=== PATIENT | male | born 1935 | race Caucasian/White ===

== ENCOUNTER 2020-11-14 09:53 | Day surgery (SDC) | payer MEDICARE, OTHER ==
[2020-11-09 13:06] LABS: BASOPHILS # (AUTO) 0.1 X10'3 (0-0.2); BASOPHILS % (AUTO) 1.1 % (0-1); EOSINOPHILS # (AUTO) 0.2 X10'3 (0-0.9); EOSINOPHILS % (AUTO) 2.5 % (0-6); HEMATOCRIT 45.7 % (42.0-52.0); HEMOGLOBIN 15.3 g/dl (14.0-17.9); LYMPHOCYTES # (AUTO) 1.6 X10'3 (1.1-4.8); LYMPHOCYTES % (AUTO) 21.6 % (21-51); MEAN CORPUSCULAR HEMOGLOBIN 32.7 PG (27.0-31.0); MEAN CORPUSCULAR HGB CONC 33.6 g/dL (33.0-36.5); MEAN CORPUSCULAR VOLUME 97.6 FL (78-98); MEAN PLATELET VOLUME 8.2 FL (7.4-10.4); MONOCYTES # (AUTO) 0.9 X10'3 (0-0.9); MONOCYTES % (AUTO) 12.5 % (2-12); NEUTROPHILS # (AUTO) 4.7 X10'3 (1.8-7.7); NEUTROPHILS % (AUTO) 62.3 % (42-75); PLATELET COUNT 228 X10'3 (140-440); RED BLOOD COUNT 4.68 X10'6 (4.70-6.10); RED CELL DISTRIBUTION WIDTH 13.9 % (11.5-14.5); WHITE BLOOD COUNT 7.5 X10'3 (4.5-11.0)
[2020-11-09 13:19] LABS: PARTIAL THROMBOPLASTIN TIME 27 SECONDS (22-32)
[2020-11-09 13:23] LABS: ALANINE AMINOTRANSFERASE 27 U/L (12-78); ALBUMIN 3.3 G/DL (3.4-5.0); ALBUMIN/GLOBULIN RATIO 0.9 (1.1-1.5); ALKALINE PHOSPHATASE 119 IU/L (46-116); ANION GAP 9 (8-16); ASPARTATE AMINO TRANSFERASE 19 U/L (10-37); BILIRUBIN,TOTAL 0.4 MG/DL (0.1-1.0); BLOOD UREA NITROGEN 26 MG/DL (7-18); BUN/CREATININE RATIO 25.2 (5.4-32.0); CALCIUM 8.8 MG/DL (8.5-10.1); CHLORIDE 106 MMOL/L (99-107); CREATININE 1.03 MG/DL (0.60-1.10); GLUCOSE 197 MG/DL (70-104); POTASSIUM 4.6 MMOL/L (3.5-5.1); SODIUM 142 MMOL/L (135-145); TOTAL CARBON DIOXIDE 26.7 MMOL/L (24-32); TOTAL PROTEIN 7.1 G/DL (6.4-8.2); eGFR 69 ML/MIN
[2020-11-09 13:54] LABS: TOTAL CELLS COUNTED 100
[2020-11-09 13:55] LABS: PLATELET ESTIMATE NORMAL
[2020-11-14] VITALS (11 sets, daily range): BP systolic 116–174; BP diastolic 51–77
[~2020-11-14] VITALS: Ht 180.3 cm; Wt 103.9 kg
[~2020-11-14 09:53] MED LIST: ALLO300T2 PO; ASPI-1264 PO; B CO1TAB7 PO; MULT-1085 PO; NPH,100V SQ; SELE200T25 PO; SIMV-45 PO; UBID1CAP54 PO; VALS160T2 PO
[2020-11-14] MEDS ORDERED: dextrose ORAL solution 15 GM/59 ML bottle PO PRN ×2 (10:15)
[2020-11-14] MEDS ORDERED: glucagon, human recombinant 1mg kit SUBCUT PRN (10:15)
[2020-11-14] MEDS ORDERED: LORazepam 0.5 MG tablet PO PRN (10:15)
[2020-11-14] MEDS ORDERED: dextrose 50%-water 50ml dispensing syringe IV PRN ×2 (10:15)
[2020-11-14] MEDS ORDERED: MESSAGE TO PHARMACY PO ONE (10:15)
[2020-11-14] MEDS ORDERED: normal saline 1,000 ML IV SCH (10:15)
[2020-11-14] MEDS ORDERED: insulin Lispro (HumaLOG) vial - multi-dose SQ SCH (10:15)
[2020-11-14] MEDS ORDERED: nitroGLYCERIN 0.4mg SUBLingual tab SL PRN ×2 (10:15→13:30)
[2020-11-14] MEDS ORDERED: diphenhydrAMINE 25mg capsule PO PRN (10:15)
[2020-11-14] MEDS ORDERED: PROBIOTIC (10:31)
[2020-11-14] MEDS ORDERED: TURMERIC (10:31)
[2020-11-14] MEDS ORDERED: VITAMIN D3 PO (10:31)
[2020-11-14] MEDS ORDERED: NITR0.4T51 SL (10:31)
[2020-11-14] MEDS ORDERED: ZINC50TA67 PO (10:31)
[2020-11-14] MEDS ORDERED: TESTOSTERONE TOP (10:31)
[2020-11-14] MEDS ORDERED: VITAMIN K2 (10:31)
[2020-11-14 11:02] LABS: TROPONIN I < 0.04 NG/ML (0.0-0.05)
[2020-11-14] MEDS ORDERED: midazolam 1 mg/ML 2ml injection ONE ×2 (12:05→12:34)
[2020-11-14] MEDS ORDERED: fentaNYL/PF 50MCG/1 ML 2ML syringe ONE ×2 (12:05→12:34)
[2020-11-14] MEDS ORDERED: iohexol 350MG/ML 100ml bottle IV ONE (12:06)
[2020-11-14] MEDS ORDERED: iohexol 350 MG/ML 50ML vial IV ONE (12:06)
[2020-11-14] MEDS ORDERED: LIDOcaine 1% (10mg/ml)w/preservative injection 20ml MDV ONE (12:06)
--- NOTE | 2020-11-14 12:13 | NUR ---
Report given to IZA Roy.
[2020-11-14] MEDS ORDERED: OXAZEpam 15mg capsule PO PRN (13:30)
[2020-11-14] MEDS ORDERED: ondansetron/PF 4mg/2ml inj IV PRN (13:30)
[2020-11-14] MEDS ORDERED: HYDROcodone/acetaminophen 5mg/325mg tablet PO PRN (13:30)
[2020-11-14] MEDS ORDERED: HYDROcodone/acetaminophen 10/325mg tab PO PRN (13:30)
[2020-11-14] MEDS ORDERED: proCHLORperazine 10 MG/2 ml inj IV PRN (13:30)
[2020-11-14] MEDS ORDERED: normal saline 1000ml 1,000 ML IV SCH (13:30)
[2020-11-14] MEDS ORDERED: insulin glargine (Lantus) pen - multi-dose SQ SCH (21:00)
== END 2020-11-14 19:25 | disposition home or self-care (01) ==
LOC: SSTAY O 09:53
PROVIDERS: ATTEND Internal Medicine Cardiovascular Disease
DX: R94.39 Abnormal result of other cardiovascular function study (principal); R07.89 Other chest pain; I25.10 Atherosclerotic heart disease of native coronary artery without angina pectoris; M10.9 Gout, unspecified; G47.33 Obstructive sleep apnea (adult) (pediatric); E11.9 Type 2 diabetes mellitus without complications; M19.90 Unspecified osteoarthritis, unspecified site; J44.9 Chronic obstructive pulmonary disease, unspecified; Z79.899 Other long term (current) drug therapy; Z96.652 Presence of left artificial knee joint; Z98.890 Other specified postprocedural states; Z72.89 Other problems related to lifestyle; Z79.82 Long term (current) use of aspirin; Z79.4 Long term (current) use of insulin; Z87.891 Personal history of nicotine dependence; R06.02 Shortness of breath
CPT/HCPCS: 36415; 71046; 80053; 82948; 83880; 84439; 84443; 84480; 84484; 85025; 85610; 85730; 93005; 93458; 99152; 99153; C1760; C1769; J1644; J1815; J2001; J2250; J3010; J7030; Q0163; Q9967; 85007; A4620; A6258

== ENCOUNTER 2024-01-25 12:58 | Outpatient (CLI) | payer MEDICARE, BC ==
[~2024-01-25 12:58] MED LIST changes: +NITR0.4T51 SL; +PROBIOTIC; +TESTOSTERONE TOP; +TURMERIC; +VITAMIN D3 PO; +VITAMIN K2; +ZINC50TA67 PO
[2024-01-25 13:48] LABS: ALBUMIN 3.3 G/DL (3.4-5.0); ANION GAP 7 (8-16); BLOOD UREA NITROGEN 40 MG/DL (7-18); CALCIUM 9.1 MG/DL (8.5-10.1); CHLORIDE 103 MMOL/L (99-107); CREATININE 1.48 MG/DL (0.60-1.10); GLUCOSE 115 MG/DL (70-104); POTASSIUM 4.4 MMOL/L (3.5-5.1); SODIUM 140 MMOL/L (135-145); TOTAL CARBON DIOXIDE 29.7 MMOL/L (24-32); eGFR 45 ML/MIN
[2024-01-25] MEDS ORDERED: iohexol 300mg/ml 100ml inj. ONE (13:56)
== END 2024-01-25 23:59 | disposition home or self-care (01) ==
LOC: RAD 12:58
PROVIDERS: ATTEND Surgery
DX: R22.2 Localized swelling, mass and lump, trunk (principal); I25.10 Atherosclerotic heart disease of native coronary artery without angina pectoris; I51.7 Cardiomegaly; I70.0 Atherosclerosis of aorta; M47.814 Spondylosis without myelopathy or radiculopathy, thoracic region
CPT/HCPCS: 36415; 71260; 80048; Q9967